=== PATIENT | female | born 1950 | race Caucasian/White ===

== ENCOUNTER 2018-02-16 13:26 | Outpatient (CLI) | payer MEDICARE, OTHER ==
--- NOTE | 2018-02-16 17:29 | MRI ---
MRI OF THE LUMBAR SPINE WITHOUT CONTRAST: DATE: 02/16/2018. COMPARISON: None. HISTORY: Lumbar radiculopathy, chronic low back pain radiating into bilateral lower extremities, radiculopathy . TECHNIQUE: Multiplanar, multisequence MR imaging of the lumbar spine provided without contrast. FINDINGS: The sagittal STIR imaging demonstrates no focal area of osseous marrow edema. No anterolisthesis or retrolisthesis is noted within the lumbar spine. The conus medullaris terminates at L1-2. T12-L1: Bilateral facet hypertrophy, left greater than right. Intervertebral disk height and signal intensity within normal limits with no significant central canal or neural foraminal stenosis. L1-2: Mild bilateral facet hypertrophy. There is disk space narrowing, disk desiccation, and mild d isk bulge. No central canal or neural foraminal stenosis. L2-3: Mild bilateral facet hypertrophy. Disk space narrowing and disk desiccation noted with no sig nificant central canal or neural foraminal stenosis. L3-4: Mild left-sided facet hypertrophy. Disk space narrowing and disk desiccation present. Mild l eft neural foraminal stenosis. No central canal or right neural foraminal stenosis. L4-5: Moderate bilateral facet hypertrophy and hypertrophy of the ligamentum flavum. Mild bilateral neural foraminal stenosis. No significant central canal stenosis. L5-S1: Moderate bilateral facet hypertrophy with no significant central canal or neural foraminal st enosis. The imaged retroperitoneal structures demonstrate no acute findings. There is fluid signal intensity within bilateral facet joints at the L4-5 level, right greater than l eft. IMPRESSION: Lower lumbar spine facet hypertrophic change, most prominent at the L5-S1 level as detailed above. F luid within the L4-5 facet joints may signify instability, which could be better assessed with flexio n and extension radiographs. POS: [facility]
== END 2018-02-16 13:27 | disposition home or self-care (01) ==
LOC: MRI 13:26
PROVIDERS: ATTEND Neurological Surgery
DX: M54.16 Radiculopathy, lumbar region (principal); M46.97 Unspecified inflammatory spondylopathy, lumbosacral region; M46.96 Unspecified inflammatory spondylopathy, lumbar region
CPT/HCPCS: 72148

== ENCOUNTER 2018-05-11 13:51 | Outpatient (CLI) | payer MEDICARE, OTHER | END 2018-05-11 13:52 | disposition home or self-care (01) | LOC: BICMAMMO 13:51 | PROVIDERS: ATTEND Obstetrics & Gynecology | DX: Z12.31 Encounter for screening mammogram for malignant neoplasm of breast (principal) | CPT/HCPCS: 77063; 77067 ==

== ENCOUNTER 2020-06-26 09:59 | Outpatient (CLI) | payer MEDICARE, OTHER | END 2020-06-26 10:00 | disposition home or self-care (01) | LOC: BICMAMMO 09:59 | PROVIDERS: ATTEND Obstetrics & Gynecology | DX: Z12.31 Encounter for screening mammogram for malignant neoplasm of breast (principal) | CPT/HCPCS: 77063; 77067 ==

== ENCOUNTER 2021-08-27 09:51 | Outpatient (CLI) | payer MEDICARE | END 2021-08-27 09:52 | disposition home or self-care (01) | LOC: BICMAMMO 09:51 | PROVIDERS: ATTEND Obstetrics & Gynecology | DX: Z12.31 Encounter for screening mammogram for malignant neoplasm of breast (principal) | CPT/HCPCS: 77063; 77067 ==

== ENCOUNTER 2021-11-14 17:06 | Emergency (ER) | payer MEDICARE ==
[2021-11-14 17:56] LABS: #Basophils 0.1 thou/uL (0.0-0.2); #Eosinphils 0.1 thou/uL (0.0-0.7); #Lymphocytes 1.6 thou/uL (1.20-3.40); #Monocytes 0.5 thou/uL (0.11-0.59); #Neutrophils 4.9 thou/uL (1.40-6.50); %Basophils 0.7 % (0.0-1.0); %Eosinophils 1.8 % (0.0-10.0); %Lymphocytes 22.6 % (21.0-51.0); %Monocytes 6.3 % (0.0-10.0); %Neutrophils 68.6 % (42.0-75.0); Hemoglobin 13.5 g/dL (12.0-16.0); Mean Corpuscular HGB CONC 32.3 g/dL (32.0-36.0); Mean Corpuscular Hemoglobin 31.7 pg (27.0-31.0); Mean Corpuscular Volume 98.3 fL (78.0-98.0); Mean Platelet Volume 8.3 fL (7.4-10.4); Platelet Count 183 thou/uL (130-400); RBC Distribution Width 11.9 % (11.5-14.5); Red Blood Cell (RBC) Count 4.26 mill/uL (4.20-5.40); White Blood Cell (WBC) Count 7.1 thou/uL (4.8-10.8)
[2021-11-14 18:06] LABS: INR-International Normal Ratio 0.9; PTT 29.7 sec (22.9-36.1); Prothrombin Time 12.2 sec (12.0-14.7)
[2021-11-14 18:22] LABS: ALT (SGPT) 19 U/L (8-55); AST (SGOT) 36 U/L (5-34); Albumin 4.3 g/dL (3.4-4.8); Alkaline Phosphatase 60 U/L (40-110); Anion Gap 18 mmol/L (10-20); BUN (Urea Nitrogen) 27 mg/dL (9.8-20.1); Bilirubin, Total 0.5 mg/dL (0.2-1.2); Calc. Creatinine Clearance 0 mL/min (70-130); Calcium 10.5 mg/dL (7.8-10.44); Carbon Dioxide 23 mmol/L (23-31); Chloride 107 mmol/L (98-107); Estimated GFR 39; Globulin 3.7 g/dL (2.4-3.5); Glucose 166 mg/dL (80-115); Lipase 105 U/L (8-78); Magnesium 2.3 mg/dL (1.6-2.6); Potassium 4.3 mmol/L (3.5-5.1); Sodium 144 mmol/L (136-145)
[2021-11-14 18:36] LABS: Free T4 (Free Thyroxine) 1.09 ng/dL (0.70-1.48)
[2021-11-14] MEDS ORDERED: Ondansetron PF 4 MG/2 ML Vial IVP PRN (20:08)
[2021-11-14] MEDS ORDERED: Zolpidem Tartrate 5 MG TAB PO PRN (20:08)
[2021-11-14] MEDS ORDERED: HYDROcodone/Acetaminophen 7.5/325 mg Tablet PO PRN (20:08)
[2021-11-14] MEDS ORDERED: Bisacodyl 5 MG TAB PO PRN (20:08)
[2021-11-14] MEDS ORDERED: Acetaminophen 325 MG TAB PO PRN (20:08)
[2021-11-14] MEDS ORDERED: Sodium Chloride 0.9% 1,000 ML IV SCH (20:15)
[2021-11-14] MEDS ORDERED: Famotidine 20 MG TAB PO SCH (21:00)
[2021-11-14] MEDS ORDERED: Amiodarone 200 MG TAB PO SCH (21:00)
[2021-11-14] MEDS ORDERED: Apixaban 2.5 MG TAB PO SCH (21:00)
[2021-11-14 21:26] LABS: Bilirubin Negative (Negative); Blood, Urine Negative (Negative); Glucose, Urine (Dipstick) Negative (Negative); Ketone, Urine Negative (Negative); Leukocyte Trace (Negative); Nitrite Negative (Negative); Protein, Urine (Dipstick) Negative (Neg-Trace); Specific Gravity, Urine 1.025 (1.005-1.030); Urobilinogen 0.2 mg/dL (Less than 2); pH, Urine 6.5 (5.0-9.0)
[2021-11-14 21:27] LABS: Clarity Clear (Clear)
[2021-11-14 21:47] LABS: RBC/HPF 0-3 HPF (0-3); Squamous Epithelial 0-3 HPF (0-3)
[2021-11-14 22:15] LABS: Troponin I 0.019 ng/mL (< 0.028)
[2021-11-15] MEDS ORDERED: Levothyroxine Sodium 75 MCG TAB PO SCH (06:00)
== END 2021-11-14 22:37 | disposition left against medical advice (07) ==
LOC: ERS 17:06
DX: I48.91 Unspecified atrial fibrillation (principal)
CPT/HCPCS: 36415; 71045; 80053; 81003; 81015; 83690; 83735; 84439; 84443; 84481; 84484; 85025; 85610; 85730; 93005; 94760; 96374

== ENCOUNTER 2023-03-03 10:03 | Outpatient (CLI) | payer MEDICARE | END 2023-03-03 10:04 | disposition home or self-care (01) | LOC: BICMAMMO 10:03 | PROVIDERS: ATTEND Obstetrics & Gynecology | DX: Z12.31 Encounter for screening mammogram for malignant neoplasm of breast (principal); Z13.820 Encounter for screening for osteoporosis | CPT/HCPCS: 77063; 77067; 77080 ==